=== PATIENT | male | born 1995 | race Caucasian/White ===

== ENCOUNTER 2023-07-20 01:06 | Emergency (ER) | payer OTHER ==
[2023-07-20 01:11] VITALS: BP 134/80; PULSE 90; RESP 14; TEMP 99.1; BMI 28.1
== END 2023-07-20 02:04 | disposition home or self-care (01) ==
LOC: FER 01:06
DX: M25.572 Pain in left ankle and joints of left foot (principal); W50.1XXA Accidental kick by another person, initial encounter; Y93.72 Activity, wrestling
CPT/HCPCS: 73610-TC-LT-FY; 73630-TC-LT; 99283-25

== ENCOUNTER 2023-09-18 18:30 | Emergency (ER) | payer OTHER ==
[2023-09-18 18:43] VITALS: BP 115/85; PULSE 84; RESP 17; TEMP 97.8; BMI 28.1
[2023-09-18] MEDS ORDERED: DIPHTH,PERTUSS(ACELL),TET 0.5 ML DISP.SYRIN IM ONE (20:08)
[2023-09-18] MEDS ORDERED: IBUPROFEN 600 MG TABLET (FP) PO ONE (20:08)
[2023-09-18] MEDS: DIPHTH,PERTUSS(ACELL),TET 0.5 ML DISP.SYRIN IM ONE (20:09)
[2023-09-18] MEDS: IBUPROFEN 600 MG TABLET (FP) PO ONE (20:10)
== END 2023-09-18 20:15 | disposition home or self-care (01) ==
LOC: FER 18:30
PROC: 3E0234Z Introduction of Serum, Toxoid and Vaccine into Muscle, Percutaneous Approach (ICD-10-PCS; principal; 2023-09-18)
DX: M25.561 Pain in right knee (principal); S80.01XA Contusion of right knee, initial encounter; S80.811A Abrasion, right lower leg, initial encounter; W22.8XXA Striking against or struck by other objects, initial encounter
CPT/HCPCS: 90715; 99282-25

== ENCOUNTER 2023-10-05 16:58 | Emergency (ER) | payer OTHER ==
[2023-10-05 17:11] VITALS: RESP 16; BMI 28.1
[2023-10-05] MEDS: SODIUM CHLORIDE 0.9% 1000 ML INFUS.BAG IV ONE (17:44)
[2023-10-05] MEDS ORDERED: KETOROLAC TROMETHAMINE 30 MG/1 ML VIAL ONE (17:45)
[2023-10-05] MEDS ORDERED: METHOCARBAMOL 500 MG TABLET ONE (17:45)
[2023-10-05] MEDS: KETOROLAC TROMETHAMINE 30 MG/1 ML VIAL IVPUSH ONE (17:50)
[2023-10-05] MEDS: METHOCARBAMOL 750 MG TABLET PO STA (17:50)
[2023-10-05] MEDS ORDERED: diazePAM CARPU-JECT 10 MG/2 ML DISP.SYRIN ONE (18:53)
[2023-10-05] MEDS: diazePAM CARPU-JECT 10 MG/2 ML DISP.SYRIN IVPUSH ONE (19:00)
[2023-10-05] MEDS ORDERED: methylPREDNISolone NA SUCC 125 MG/2 ML VIAL ONE (19:20)
[2023-10-05] MEDS: methylPREDNISolone NA SUCC 40 MG/1 ML VIAL IVPUSH ONE (19:25)
[2023-10-05 20:21] VITALS: BP 120/75; PULSE 86; TEMP 97.8
== END 2023-10-05 20:25 | disposition home or self-care (01) ==
LOC: FER 16:58
PROC: 3E033NZ Introduction of Analgesics, Hypnotics, Sedatives into Peripheral Vein, Percutaneous Approach (ICD-10-PCS; principal; 2023-10-05)
PROC: 3E0303Z Introduction of Anti-inflammatory into Peripheral Vein, Open Approach (ICD-10-PCS; 2023-10-05)
PROC: 3E030GC Introduction of Other Therapeutic Substance into Peripheral Vein, Open Approach (ICD-10-PCS; 2023-10-05)
DX: S39.012A Strain of muscle, fascia and tendon of lower back, initial encounter (principal); R20.0 Anesthesia of skin; X50.1XXA Overexertion from prolonged static or awkward postures, initial encounter
CPT/HCPCS: 72100-TC-FY; 99284-25

== ENCOUNTER 2025-03-23 17:46 | Emergency (ER) | payer OTHER ==
[2025-03-23 18:08] VITALS: BP 130/89; PULSE 92; RESP 19; TEMP 97.4; BMI 28.1
[2025-03-23] MEDS: LACTATED RINGERS SOLUTION 1,000 ML/1,000 ML INFUS.BAG IV ONE (20:55)
[2025-03-23 21:11] LABS: ABSOLUTE IMMATURE GRANULOCYTES 0.02 x10^3/uL (0.0-0.031); BASOPHILS # 0.04 x10^3/uL (0.01-0.08); EOSINOPHIL % 1.9 % (0.8-7.0); EOSINOPHILS # 0.19 x10^3/uL (0.04-0.54); MCHC 33.3 g/dl (32.3-36.5); MEAN CELL VOLUME 88.9 fl (79.0-92.2); MEAN PLT VOLUME 9.5 fl (9.4-12.4); MONOCYTE # 0.67 x10^3/uL (0.30-0.82); MONOCYTE % 6.7 % (5.3-12.2); RDW 11.4 % (11.9-15.3)
[2025-03-23 21:30] LABS: ALK PHOS 45.0 U/L (45-117); CO2 27.0 mmol/L (21-32); CREATININE 1.0 mg/dl (0.6-1.3); GLUCOSE,RANDOM 69.0 mg/dl (74-106); SGOT/AST 21.0 U/L (15-37); SGPT/ALT 32.0 U/L (7-52); TOT PROT 7.7 g/dl (6.4-8.2)
[2025-03-23 23:39] LABS: HCV DIAGNOSTIC IN-HOUSE W/RFLX NON-REACTIVE (NONREACTIVE); HIV INTERPRETATION NEGATIVE (NEGATIVE)
== END 2025-03-23 21:51 | disposition home or self-care (01) ==
LOC: FER 17:46
PROC: 3E0337Z Introduction of Electrolytic and Water Balance Substance into Peripheral Vein, Percutaneous Approach (ICD-10-PCS; principal; 2025-03-23)
DX: R42 Dizziness and giddiness (principal); R07.89 Other chest pain
CPT/HCPCS: 36415; 80053; 85025; 86803; 87389; 93005; 93010